=== PATIENT | female | born 1990 | race Caucasian/White ===

== ENCOUNTER 2016-10-01 10:48 | Emergency (ER) | payer OTHER ==
--- NOTE | 2016-10-01 14:32 | ED ORDER SUMMARY ---
..... Patient: SUHA MOORE OrderSheet [facility] VisitID: [id number] [address] [place] [address] 26y, F Registration Date/Time: 10/01/2016 ORDER SHEET Weight: 63.5 kg (stated) Allergies: Penicillin GENERAL ORDERS: UA-Culture if indicated Urgent (12:41 10/01/2016 Lynn KIM) (Ack 12:48 NHouse ER Tech1) (13:02 SBalde R.N.) Urine Urgent (12:41 10/01/2016 Lynn KIM) (Ack 12:48 NHouse ER Tech1) (13:02 Yasir R.N.) Urine Drug Screen Urgent (12:41 10/01/2016 Lynn KIM) (Ack 12:48 NHouse ER Tech1) (13:02 Yasir R.N.) CBC w Diff Urgent (12:41 10/01/2016 Lynn KIM) (Ack 12:48 NHouse ER Tech1) (13:00 NHouse ER Tech1) CMP Urgent (12:41 10/01/2016 Lynn KIM) (Ack 12:48 NHouse ER Tech1) (13:00 NHouse ER Tech1) MEDICATION ORDERS: Ativan PO 1 mg (NOW) (12:40 10/01/2016 Lynn KIM) (13:01 Stiven R.N.) Zofran ODT PO 4 mg (NOW) (12:40 10/01/2016 Lynn KIM) (13:01 HOSdallas R.N.) Clonidine Topical 0.2 mg (NOW) (12:40 10/01/2016 Lynn KIM) (13:02 Stiven R.N.) IV FLUIDS: ORDER SHEET NOTES: [Electronically signed by Jordan Kuo R.N. (14:36 10/01/2016)] [Electronically signed by Zaki Villalba MD (21:05 10/02/2016)] [Electronically locked/signed by Jordan Kuo R.N. (14:36 10/01/2016)]
--- NOTE | 2016-10-01 14:32 | ED ORDER SUMMARY ---
..... Patient: SUHA MOORE OrderSheet [facility] VisitID: [id number] [address] [place] [address] 26y, F Registration Date/Time: 10/01/2016 ORDER SHEET Weight: 63.5 kg (stated) Allergies: Penicillin GENERAL ORDERS: UA-Culture if indicated Urgent (12:41 10/01/2016 Lynn KIM) (Ack 12:48 NHouse ER Tech1) (13:02 SBalde R.N.) Urine Urgent (12:41 10/01/2016 Lynn KIM) (Ack 12:48 NHouse ER Tech1) (13:02 Yasir R.N.) Urine Drug Screen Urgent (12:41 10/01/2016 Lynn KIM) (Ack 12:48 NHouse ER Tech1) (13:02 Yasir R.N.) CBC w Diff Urgent (12:41 10/01/2016 Lynn KIM) (Ack 12:48 NHouse ER Tech1) (13:00 NHouse ER Tech1) CMP Urgent (12:41 10/01/2016 Lynn KIM) (Ack 12:48 NHouse ER Tech1) (13:00 NHouse ER Tech1) MEDICATION ORDERS: Ativan PO 1 mg (NOW) (12:40 10/01/2016 Lynn KIM) (13:01 Stiven R.N.) Zofran ODT PO 4 mg (NOW) (12:40 10/01/2016 Lnyn KIM) (13:01 HOSdallas R.N.) Clonidine Topical 0.2 mg (NOW) (12:40 10/01/2016 Lynn KIM) (13:02 Stiven R.N.) IV FLUIDS: ORDER SHEET NOTES: [Electronically signed by Jordan Kuo R.N. (14:36 10/01/2016)] [Electronically signed by Zaki Villalba MD (21:05 10/02/2016)] [Electronically locked/signed by Jordan Kuo R.N. (14:36 10/01/2016)]
--- NOTE | 2016-10-01 14:32 | ED NURSING NOTES ---
Clinical Report - Nurses [facility] [address] [place] [address] 10/01/2016 10:50 Patient: SUHA MOORE TRIAGE Triage time 1140 AM. Chief Complaint: (heroin withdrawal). Alert. No acute distress. CARYL COMA SCORE: [place] Coma Scale: 15- eyes open spontaneously (4); best verbal response- oriented x 4 (5); best motor response- obeys commands (6). --11:44 Jordan Kuo R.N. 11:40 10/01/16. BP: 122/77. HR: 79. RR: 16. O2 saturation: 99%. Temp: 98.1 F (oral). Pain level now: 07/02. --11:44 Jordan Kuo R.N. Weight: 63.5 kg stated. Height/Length: 68 inches Per Patient. BMI: 21.3. --11:41 Jordan Kuo R.N. Medications None. --11:43 Jordan Kuo R.N. Allergies Penicillin. --11:43 Jordan Kuo R.N. History Arrived by private vehicle. Historian: patient. Unaccompanied. This started last night. ( Patient presents to the ED with symptoms of heroin withdrawal, states that she last used IV heroin yesterday around 11am. Patient states that she was up all night with diarrhea, vomiting, and body aches. Patients states that she would like to quit heroin.). She has had weakness and difficulty breathing. Reports muscle aches. Treatment HARNESSMAKER: None. SOCIAL HX: Current every day light tobacco smoker (cigarette)- less than 1/2 a pack per day. Alcohol use. (no). History of heavy IV drug use: heroin. Recently used drugs yesterday. No infectious disease exposure. FALL RISK ASSESSMENT: Fall risk assessment completed. No fall risk identified. NUTRITIONAL RISK ASSESSMENT: The nutritional risk assessment revealed no deficiencies. FUNCTIONAL ASSESSMENT: Functional assessment: no impairments noted. LEARNING NEEDS ASSESSMENT: The learning needs assessment revealed no barriers. SKIN INTEGRITY ASSESSMENT: Skin integrity risk assessment completed. No skin integrity risk identified. --11:44 Jordan uKo R.N. PROBLEMS: no known problems. ADDITIONAL SURGERIES: no known surgeries. PHYSICAL ASSESSMENT Ambulatory to room. GENERAL / NEURO / PSYCH: Alert. Oriented X 4. Appears in no acute distress. HEENT: Pupils equal, round and reactive to light. No facial asymmetry noted. Mucous membranes are pink. RESPIRATORY: Respirations not labored. Chest nontender. Breath sounds within normal limits. CVS: Normal sinus rhythm noted. Capillary refill less than 2 seconds. Pulses within normal limits. GI / : Abdomen soft and nontender and normal bowel sounds. SKIN: Skin intact. Skin is warm and dry. Normal skin turgor. --11:45 Jordan Kuo R.N. NURSING PROGRESS NOTES 13:01 10/01/2016 Ativan (LORazepam) PO 1 mg given. Allergies verified, confirmed 5 rights and sedative warning given to the patient. --13:01 Jordan Kuo R.N. 13:01 10/01/2016 Zofran ODT (Ondansetron) PO Oral Disintegrating Tablets 4 mg given. Allergies verified and confirmed 5 rights. --13:01 Jordan Kuo R.N. 13:02 10/01/2016 Clonidine Topical Patch/Pad 0.2 mg. Applied to the right upper arm. Allergies verified and confirmed 5 rights. --13:02 Jordan Kuo R.N. The patient is calm and resting quietly. --13:19 Lynn Singer R.N. DISPOSITION / DISCHARGE The patient left prior to discharge education being provided. --14:35 Jordan Kuo R.N. Departure time: 1435 PM. --14:35 Jordan Kuo R.N. Locked/Released at 10/01/2016 14:36 by Jordan Kuo R.N.
--- NOTE | 2016-10-01 14:32 | ED CLINICAL REPORT ---
Clinical Report - Physicians/Mid Levels [facility] [address] [place] [address] 10/01/2016 10:50 Patient: SUHA MOORE Time Seen: 12:36 Oct 01 2016. Arrived- By private vehicle. Historian- patient. CPT: ER phys charges level 4 (#[id number]). HISTORY OF PRESENT ILLNESS Chief Complaint: heroin withdrawal. ( This started last night. ( Patient presents to the ED with symptoms of heroin withdrawal, states that she last used IV heroin yesterday around 11am. Patient states that she was up all night with diarrhea, vomiting, and body aches. Patients states that she would like to quit heroin.). She has had weakness and difficulty breathing. Reports muscle aches.). This started today and is still present. At its maximum, severity described as moderate. When seen in the E.D., severity described as moderate. Modifying factors. Not worsened by anything. Not relieved by anything. The patient has had loss of appetite, fatigue, a sleep problem, muscle aches and weakness. Similar symptoms previously: Milder. Diagnosis: (withdrawal). Recent medical care: Not recently seen/assessed. REVIEW OF SYSTEMS No fever, sore throat, sinus drainage, cough or difficulty breathing. No chest pain, abdominal pain, black stools, bloody stools or chills. No difficulty with urination, skin rash or calf pain. The patient has had nausea, vomiting, diarrhea, back pain and a headache. All systems otherwise negative, except as recorded above. PAST HISTORY See nurses notes. Problems: no known problems. Additional Surgeries: no known surgeries. Medications: None. Allergies: Penicillin. SOCIAL HISTORY Heavy tobacco smoker (cigarette)- less than 1 pack per day. History of drug use: heroin. No alcohol use. ADDITIONAL NOTES The nursing notes have been reviewed. PHYSICAL EXAM Vital Signs: 10/01/2016 11:40 BP: 122/77. HR: 79. RR: 16. O2 saturation: 99%. Temp: 98.1 F. Pain level now: 1010. Appearance: Alert. Anxious. Patient in mild distress. Eyes: Eyes normal inspection. ENT: Pharynx normal. Neck: Normal inspection. CVS: Normal heart rate and rhythm. Heart sounds normal. Pulses normal. Respiratory: No respiratory distress. Breath sounds normal. Chest nontender. Abdomen: Soft and nontender. Back: Normal inspection. Skin: Skin warm. Normal skin color. No rash. Extremities: Extremities exhibit normal ROM. No lower extremity edema. Neuro: Oriented X 3. No motor deficit. No sensory deficit. Reflexes normal. (mild tremor). LABS, X-RAYS, AND EKG Laboratory Tests: UA-Culture if indicated: (ASHLYN: 10/01/2016 12:51) ( [facility]01[facility] 13:09) Final results Test Result Flag Units (Reference) URINE COLOR YELLOW URINE APPEARANCE CLEAR URINE GLUCOSE NEGATIVE (NEGATIVE) URINE BILIRUBIN NEGATIVE (NEGATIVE) URINE KETONE NEGATIVE (NEGATIVE) URINE SPECIFIC GRAVITY 1.010 (1.010-1.030) URINE PH 7.0 (5.0-8.0) URINE PROTEIN NEGATIVE (NEGATIVE) URINE UROBILINOGEN 0.2 EU/dL (0.2-1.0) URINE NITRITE NEGATIVE (NEGATIVE) URINE BLOOD NEGATIVE (NEGATIVE) URINE LEUK ESTERASE NEGATIVE (NEGATIVE) URINE RBC 1-3 rbc/hpf (0-1) URINE WBC NONE SEEN wbc/hpf (0-1) URINE EPITHELIAL CELLS 5-10 EPI/hpf (0-5) URINE BACTERIA NONE SEEN (NONE SEEN) URINE COMMENT CULT NOT INDICATED 1+ MUCOUSURINE CULTURES ARE SET-UP BASED ON THE FOLLOWING CRITERIA:POSITIVE NITRITEPOSITIVE LEUKOCYTE ESTERASEGREATER THAN 10 WHITE BLOOD CELLSMODERATE (2+) OR GREATER BACTERIA Urine: (ASHLYN: 10/01/2016 12:51) ( [facility] 10/01/2016 13:02) Final results Test Result Flag Units (Reference) URINE NEGATIVE CBC w Diff: (ASHLYN: 10/01/2016 12:57) ( [facility] 10/01/2016 13:06) Final results Test Result Flag Units (Reference) WHITE BLOOD COUNT 6.8 K/uL (4.5-11.5) RED BLOOD COUNT 4.45 M/uL (4.00-5.20) HEMOGLOBIN 14.4 gm/dL (12.0-16.0) HEMATOCRIT 44.0 % (36.0-46.0) MEAN CELL VOLUME 99 fL (80-100) MEAN CORPUSCULAR HGB 32 pg (26-34) MEAN CORPUSCULAR HGB CONC 33 g/dL (31-37) RED CELL DISTRIBUTION WIDTH 12.9 % (11.6-14.8) PLATELET COUNT 237 K/uL (150-400) NEUTROPHIL % 65.0 % (50-75) LYMPH % 25.1 % (25-40) MONO % 9.5 % (3-14) EOSINOPHIL % 0.1 % (0-4) BASOPHIL % 0.3 % (0-2) Urine Drug Screen: (ASHLYN: 10/01/2016 12:51) ( MsgRcvd 10/01/2016 13:12) Final results Test Result Flag Units (Reference) AMPHETAMINE/METHAMPHETAMINE NEGATIVE (NEGATIVE) BARBITURATE NEGATIVE (NEGATIVE) BENZODIAZEPINE NEGATIVE (NEGATIVE) CANNABINOID POSITIVE H (NEGATIVE) COCAINE NEGATIVE (NEGATIVE) ECSTASY NEGATIVE (NEGATIVE) METHADONE NEGATIVE (NEGATIVE) OPIATE NEGATIVE (NEGATIVE) The urine drug screen is a qualitative screening test fordrug overdose and abuse. All screen results should beconsidered as presumptive.Drugs screened for are as follows:BenzodiazepinesCocaineAmphetamines/MetamphetaminesTHC (Tetrahydrocannabinol)OpiatesBarbituratesEcstasyMethadonePositive results are unconfirmed. For confirmation, notifythe lab for the specimen to be sent to the reference lab.All confirmations must be performed by a differentmethodology.The ingestion of natural herbal and plant productscontaining Ephedra/Ephedra metabolites can produce in urineone or more substances capable of cross reacting withamphetamine/methamphetamine immunoassays. These testsprovide a preliminary result only. A more specificalternative chemical method must be used to obtain aconfirmed analytical result. CMP: (ASHLYN: 10/01/2016 12:57) ( MsgRcvd 10/01/2016 13:25) Final results Test Result Flag Units (Reference) GLUCOSE 96 mg/dL (70-110) BUN 6 L mg/dL (7-18) CREATININE 0.7 mg/dL (0.6-1.3) Estimated GFR >60 mL/min Estimated GFR- >60 mL/min Note: Persistent reduction over 3 months in eGFR<60 mL/min/1.73 m2 defines CKD. Patients with eGFR values>=60 mL/min/1.73 m2 may also have CKD if evidence ofpersistent proteinuria. Additional information may be foundat www.kidney.org. SODIUM 141 mmol/L (136-145) POTASSIUM 3.6 mmol/L (3.5-5.1) CHLORIDE 106 mmol/L (98-107) CARBON DIOXIDE 29 mmol/L (21-32) CALCIUM 9.8 mg/dL (8.5-10.1) TOTAL PROTEIN 7.8 g/dL (6.4-8.2) ALBUMIN 4.0 g/dL (3.3-5.0) BILIRUBIN, TOTAL 0.3 mg/dL (0.0-1.0) ALKALINE PHOSPHATASE 67 U/L (46-116) AST (SGOT) 15 U/L (15-37) ALT (SGPT) 26 U/L (12-78) . PROGRESS AND PROCEDURES Course of Care: Zofran 4 mg ODT Ativan 1 mg po Clonidine patch 0.2 Symptoms better. Pt eloped from the ER. Patient/family counseled. Disposition: ( Pt Eloped). CLINICAL IMPRESSION Heroin withdrawal Eloped from the ER. (Electronically signed by Zaki Villalba MD 10/02/2016 21:05)
--- NOTE | 2016-10-01 14:32 | ED NURSING NOTES ---
Clinical Report - Nurses [facility] [address] [place] [address] 10/01/2016 10:50 Patient: SUHA MOORE TRIAGE Triage time 1140 AM. Chief Complaint: (heroin withdrawal). Alert. No acute distress. CARYL COMA SCORE: [place] Coma Scale: 15- eyes open spontaneously (4); best verbal response- oriented x 4 (5); best motor response- obeys commands (6). --11:44 Jordan Kuo R.N. 11:40 10/01/16. BP: 122/77. HR: 79. RR: 16. O2 saturation: 99%. Temp: 98.1 F (oral). Pain level now: 07/02. --11:44 Jordan Kuo R.N. Weight: 63.5 kg stated. Height/Length: 68 inches Per Patient. BMI: 21.3. --11:41 Jordan Kuo R.N. Medications None. --11:43 Jordan Kuo R.N. Allergies Penicillin. --11:43 Jordan Kuo R.N. History Arrived by private vehicle. Historian: patient. Unaccompanied. This started last night. ( Patient presents to the ED with symptoms of heroin withdrawal, states that she last used IV heroin yesterday around 11am. Patient states that she was up all night with diarrhea, vomiting, and body aches. Patients states that she would like to quit heroin.). She has had weakness and difficulty breathing. Reports muscle aches. Treatment INSURANCE APPLICATION INVESTIGATOR: None. SOCIAL HX: Current every day light tobacco smoker (cigarette)- less than 1/2 a pack per day. Alcohol use. (no). History of heavy IV drug use: heroin. Recently used drugs yesterday. No infectious disease exposure. FALL RISK ASSESSMENT: Fall risk assessment completed. No fall risk identified. NUTRITIONAL RISK ASSESSMENT: The nutritional risk assessment revealed no deficiencies. FUNCTIONAL ASSESSMENT: Functional assessment: no impairments noted. LEARNING NEEDS ASSESSMENT: The learning needs assessment revealed no barriers. SKIN INTEGRITY ASSESSMENT: Skin integrity risk assessment completed. No skin integrity risk identified. --11:44 Jordan Kuo R.N. PROBLEMS: no known problems. ADDITIONAL SURGERIES: no known surgeries. PHYSICAL ASSESSMENT Ambulatory to room. GENERAL / NEURO / PSYCH: Alert. Oriented X 4. Appears in no acute distress. HEENT: Pupils equal, round and reactive to light. No facial asymmetry noted. Mucous membranes are pink. RESPIRATORY: Respirations not labored. Chest nontender. Breath sounds within normal limits. CVS: Normal sinus rhythm noted. Capillary refill less than 2 seconds. Pulses within normal limits. GI / : Abdomen soft and nontender and normal bowel sounds. SKIN: Skin intact. Skin is warm and dry. Normal skin turgor. --11:45 Jordan Kuo R.N. NURSING PROGRESS NOTES 13:01 10/01/2016 Ativan (LORazepam) PO 1 mg given. Allergies verified, confirmed 5 rights and sedative warning given to the patient. --13:01 Jordan Kuo R.N. 13:01 10/01/2016 Zofran ODT (Ondansetron) PO Oral Disintegrating Tablets 4 mg given. Allergies verified and confirmed 5 rights. --13:01 Jordan Kuo R.N. 13:02 10/01/2016 Clonidine Topical Patch/Pad 0.2 mg. Applied to the right upper arm. Allergies verified and confirmed 5 rights. --13:02 Jordan Kuo R.N. The patient is calm and resting quietly. --13:19 Lynn Singer R.N. DISPOSITION / DISCHARGE The patient left prior to discharge education being provided. --14:35 Jordan Kuo R.N. Departure time: 1435 PM. --14:35 Jordan Kuo R.N. Locked/Released at 10/01/2016 14:36 by Jordan Kuo R.N.
--- NOTE | 2016-10-02 21:05 | ED MED RECONCILIATION SUMMARY ---
Patient: SUHA MOORE Medication Reconciliation Report [facility] VisitID: [id number] [address] [place] [address] 26y, F Registration Date/Time: 10/01/2016 Weight: 63.5 kg Height/Length: 68 in. BMI: 21.3 ALLERGIES: Penicillin The patient's Home Medications are listed below: NONE. The source(s) of the original Home Medication information: Not obtained. The following Medications were given to the patient in the Emergency Department: Ativan [PO] PO 1 mg, administered: 10/01/2016 1:01:00 PM Zofran ODT [PO] PO 4 mg, administered: 10/01/2016 1:01:00 PM Clonidine [Topical] Topical 0.2 mg, administered: 10/01/2016 1:02:00 PM The following Medications were prescribed to the patient: None.
--- NOTE | 2016-10-02 21:05 | ED DISCHARGE INSTRUCTIONS ---
Patient: SUHA MOORE General Instructions [facility] VisitID: [id number] [address] [place] [address] 26y, F Registration Date/Time: 10/01/2016 Heroin withdrawal Eloped from the ER. (Electronically signed by Zaki Villalba MD 10/02/2016 21:05)
--- NOTE | 2016-10-02 21:05 | ED MAR SUMMARY ---
..... Medication Administration Record [facility] [address] [place] [place] [address] Patient: SUHA MOORE Visit ID: [id number] 26y, F Weight: 63.5 kg Height/Length: 68 in BMI: 21.3 ALLERGIES: Penicillin Given 13:10/01/2016 Jordan Kuo RPierreNPierre Medication Administered: ATIVAN [PO] (LORAZEPAM), Dose: 1 mg PO. Medication Ordered: Ativan PO 1 mg (NOW). Given 13:10/01/2016 Jordan Kou, RPierreNPierre Medication Administered: ZOFRAN ODT [PO] (ONDANSETRON), Dose: 4 mg Oral Disintegrating Tablets PO. Medication Ordered: Zofran ODT PO 4 mg (NOW). Given 13:10/01/2016 Jordan Kuo, RPierreNPierre Medication Administered: CLONIDINE [TOPICAL], Dose: 0.2 mg Patch/Pad Topical. Medication Ordered: Clonidine Topical 0.2 mg (NOW).
--- NOTE | 2016-10-02 21:05 | ED DISCHARGE INSTRUCTIONS ---
Patient: SUHA MOORE General Instructions [facility] VisitID: [id number] [address] [place] [address] 26y, F Registration Date/Time: 10/01/2016 Heroin withdrawal Eloped from the ER. (Electronically signed by Zaki Villalba MD 10/02/2016 21:05)
--- NOTE | 2016-10-02 21:05 | ED MAR SUMMARY ---
..... Medication Administration Record [facility] [address] [place] [address] Patient: SUHA MOORE Visit ID: [id number] 26y, F Weight: 63.5 kg Height/Length: 68 in BMI: 21.3 ALLERGIES: Penicillin Given 13:10/01/2016 Jordan Kuo RPierreNPierre Medication Administered: ATIVAN [PO] (LORAZEPAM), Dose: 1 mg PO. Medication Ordered: Ativan PO 1 mg (NOW). Given 13:10/01/2016 Jordan Kuo, RPierreNPierre Medication Administered: ZOFRAN ODT [PO] (ONDANSETRON), Dose: 4 mg Oral Disintegrating Tablets PO. Medication Ordered: Zofran ODT PO 4 mg (NOW). Given 13:10/01/2016 Jordan Kuo, RPierreNPierre Medication Administered: CLONIDINE [TOPICAL], Dose: 0.2 mg Patch/Pad Topical. Medication Ordered: Clonidine Topical 0.2 mg (NOW).
--- NOTE | 2016-10-02 21:05 | ED MED RECONCILIATION SUMMARY ---
Patient: SUHA MOORE Medication Reconciliation Report [facility] VisitID: [id number] [address] [place] [address] 26y, F Registration Date/Time: 10/01/2016 Weight: 63.5 kg Height/Length: 68 in. BMI: 21.3 ALLERGIES: Penicillin The patient's Home Medications are listed below: NONE. The source(s) of the original Home Medication information: Not obtained. The following Medications were given to the patient in the Emergency Department: Ativan [PO] PO 1 mg, administered: 10/01/2016 1:01:00 PM Zofran ODT [PO] PO 4 mg, administered: 10/01/2016 1:01:00 PM Clonidine [Topical] Topical 0.2 mg, administered: 10/01/2016 1:02:00 PM The following Medications were prescribed to the patient: None.
== END 2016-10-01 14:36 | disposition left against medical advice (07) ==
LOC: ED SRH 10:48
DX: F11.23 Opioid dependence with withdrawal (principal); F17.210 Nicotine dependence, cigarettes, uncomplicated; Z88.0 Allergy status to penicillin
CPT/HCPCS: 90004; 90074; 90100; 92760; 92761; 92762; 92763; 92764; 92765; 92766; 92767; 93070; 95059

== ENCOUNTER 2016-11-13 18:22 | Emergency (ER) | payer OTHER ==
--- NOTE | 2016-11-13 20:04 | ED NURSING NOTES ---
Clinical Report - Nurses [facility] [address] [place] [address] 11/13/2016 18:22 Patient: SUHA MOORE TRIAGE Triage time 1802. Acuity: LEVEL 4. Chief Complaint: (ETOH- clear to book). Alert. No acute distress. (combative intoxicated). --18:36 Belia Huerta 18:33 11/13/16. BP: 154/108. HR: 146. RR: 20. O2 saturation: 96%. --18:36 Belia Huerta. Weight: 65.7 kg. Height/Length: 68 inches. BMI: 22. --18:33 Belia Huerta. Medications Unable to Obtain. --18:34 Belia Huerta. Allergies No Known Drug Allergy. --18:35 Belia Huerta. History Historian: police. Arrived in police custody. This started today. Treatment DIALYSIS CLINICAL MANAGER: None. --18:36 Belia Huerta. Interventions ID band on patient. To treatment room. --18:36 Belia Huerta. PHYSICAL ASSESSMENT Carried to room. GENERAL / NEURO / PSYCH: Alert. Appears in distress. Decreased awareness (combative). Mood/affect abnormal (restless, agitated, angry and hostile). HEENT: No facial asymmetry noted. Mucous membranes are pink. RESPIRATORY: Respirations not labored. Chest nontender. Breath sounds within normal limits. CVS: Cardiac rhythm: sinus tachycardia. Capillary refill less than 2 seconds. Pulses within normal limits. GI / : Abdomen soft and nontender and normal bowel sounds. SKIN: Skin intact. Skin is warm and dry. Normal skin turgor. --18:38 Belia Huerta. NURSING PROGRESS NOTES Monitoring of patient in place. Patient gowned. Bed placed in lowest position. Brakes of bed on. Patient ready for evaluation- chart flagged. --18:39 Belia Huerta ( Pt is intoxicated, here in cuffs with 4 police officers, carried in, clear to book, assaulted police). --18:40 Belia Huerta ( Hand cuffs removed, pt placed in hospital 4 point restraints, spit miller on for spitting at police and staff). --18:40 Belia Huerta 19:16 11/13/16. BP: 113/65. RR: 18. O2 saturation: 96%. --19:16 Belia Huerta ( Pt is sleeping, good cap refill x 4). --19:16 Belia Huerta 19:40 11/13/2016 HALDOL (Haloperidol Lactate) IM 5 mg given. Given in the left anterior lateral thigh. Allergies verified and confirmed 5 rights. --20:12 Belia Huerta ( see restraint flow sheet). --20:12 Belia Huerta. DISPOSITION / DISCHARGE Departure time: 2009. Condition at departure: unchanged and stable. ( clear to book). The patient was discharged by the physician. She was discharged to police department facility and accompanied by a police escort. She left the Emergency Department via police department vehicle and carried. Driving (police). --20:14 Belia Huerta 20:12 11/13/16. BP: 151/100. HR: 136. RR: 20. O2 saturation: 97%. --20:14 Belia Huerta. Locked/Released at 11/13/2016 20:14 by Belia Huerta,
--- NOTE | 2016-11-13 20:04 | ED CLINICAL REPORT ---
Clinical Report - Physicians/Mid Levels [facility] [address] [place] [address] 11/13/2016 18:22 Patient: SUHA MOORE Time Seen: 18:33; initial patient contact. Arrived- Presently in custody of police. Came in police custody. Historian- patient. History limited by intoxication. Physical Exam limited by intoxication. HISTORY OF PRESENT ILLNESS Chief Complaint: INTOXICATED. Symptoms started today. Substances abused: Alcohol. Last drink consisted of liquor just prior to arrival. She is under influence in ED. The patient has been agitated. The symptoms are described as moderate. No injuries noted. Similar symptoms previously: None. Recent medical care: Not recently seen/assessed. REVIEW OF SYSTEMS No double vision, alteration in mental status, depression, head injury or suicidal thoughts. All systems otherwise negative, except as recorded above. PAST HISTORY See nurses notes. SOCIAL HISTORY Smoker - current status unknown. Alcohol use. ADDITIONAL NOTES The nursing notes have been reviewed with agreement regarding the chief complaint, PMH and patient medications and allergies. PHYSICAL EXAM Vital Signs: 11/13/2016 18:34 BP: 154/108. HR: 146. RR: 20. O2 saturation: 96%. Have been reviewed. Hypertensive. Tachycardic. Respiratory rate normal. Temperature normal. Oxygen saturation normal. Appearance: Anxious. The patient's speech is slurred, the patient is agitated and odor of alcohol is present. ENT: Pharynx normal. CVS: Heart sounds normal. Respiratory: No respiratory distress. Breath sounds normal. Abdomen: Soft and nontender. No organomegaly. Skin: Normal skin color. No rash. Extremities: No lower extremity edema. LABS, X-RAYS, AND EKG Laboratory Tests: UA-Culture if indicated: (ASHLYN: 11/13/2016 18:30) ( MsgRcvd 11/13/2016 19:08) Final results Test Result Flag Units (Reference) URINE COLOR STRAW URINE APPEARANCE CLEAR URINE GLUCOSE NEGATIVE (NEGATIVE) URINE BILIRUBIN NEGATIVE (NEGATIVE) URINE KETONE NEGATIVE (NEGATIVE) URINE SPECIFIC GRAVITY <= 1.005 L (1.010-1.030) URINE PH 6.0 (5.0-8.0) URINE PROTEIN NEGATIVE (NEGATIVE) URINE UROBILINOGEN 0.2 EU/dL (0.2-1.0) URINE NITRITE NEGATIVE (NEGATIVE) URINE BLOOD NEGATIVE (NEGATIVE) URINE LEUK ESTERASE NEGATIVE (NEGATIVE) URINE RBC 0-1 rbc/hpf (0-1) URINE WBC 0-1 wbc/hpf (0-1) URINE EPITHELIAL CELLS 1-3 EPI/hpf (0-5) URINE BACTERIA NONE SEEN (NONE SEEN) URINE COMMENT CULT NOT INDICATED URINE CULTURES ARE SET-UP BASED ON THE FOLLOWING CRITERIA:POSITIVE NITRITEPOSITIVE LEUKOCYTE ESTERASEGREATER THAN 10 WHITE BLOOD CELLSMODERATE (2+) OR GREATER BACTERIA Urine: (ASHLYN: 11/13/2016 18:30) ( [facility] 11/13/2016 19:01) Final results Test Result Flag Units (Reference) URINE NEGATIVE Urine Drug Screen: (ASHLYN: 11/13/2016 18:30) ( [facility] 11/13/2016 19:29) Final results Test Result Flag Units (Reference) AMPHETAMINE/METHAMPHETAMINE NEGATIVE (NEGATIVE) BARBITURATE NEGATIVE (NEGATIVE) BENZODIAZEPINE NEGATIVE (NEGATIVE) CANNABINOID POSITIVE H (NEGATIVE) COCAINE NEGATIVE (NEGATIVE) ECSTASY NEGATIVE (NEGATIVE) METHADONE NEGATIVE (NEGATIVE) OPIATE NEGATIVE (NEGATIVE) The urine drug screen is a qualitative screening test fordrug overdose and abuse. All screen results should beconsidered as presumptive.Drugs screened for are as follows:BenzodiazepinesCocaineAmphetamines/MetamphetaminesTHC (Tetrahydrocannabinol)OpiatesBarbituratesEcstasyMethadonePositive results are unconfirmed. For confirmation, notifythe lab for the specimen to be sent to the reference lab.All confirmations must be performed by a differentmethodology.The ingestion of natural herbal and plant productscontaining Ephedra/Ephedra metabolites can produce in urineone or more substances capable of cross reacting withamphetamine/methamphetamine immunoassays. These testsprovide a preliminary result only. A more specificalternative chemical method must be used to obtain aconfirmed analytical result. Ethyl Alcohol: (ASHLYN: 11/13/2016 18:30) ( MsgRcvd 11/13/2016 19:07) Final results Test Result Flag Units (Reference) ETHYL ALCOHOL 323 H mg/dL (3-10) . PROGRESS AND PROCEDURES Disposition: [facility] to [facility] in good condition. Condition: stable. CLINICAL IMPRESSION Alcohol intoxication. No alcohol intoxication with delirium. Complicated alcohol intoxication. INSTRUCTIONS No alcohol. Seek medical help to quit drinking. (CLEAR TO BOOK!!!). Follow-up: Follow up with your doctor in about two days if not better. Call for an appointment. Screening today revealed the patient's blood pressure to be in the normal range. (Electronically signed by Yang Santos Dr. 11/13/2016 20:21)
--- NOTE | 2016-11-13 20:04 | ED ORDER SUMMARY ---
..... Patient: SUHA MOORE OrderSheet [facility] VisitID: [id number] [address] [place] [address] 26y, F Registration Date/Time: 11/13/2016 ORDER SHEET Weight: 65.7 kg Allergies: No Known Drug Allergy GENERAL ORDERS: UA-Culture if indicated Urgent (18:43 11/13/2016 Kristen verbal order read back to Dm Monet) (18:43 EBonrobert) Urine Urgent (18:43 11/13/2016 EBashlee verbal order read back to Dm Monet) (18:43 EBonrobert) Ethyl Alcohol Urgent (18:43 11/13/2016 EBashlee verbal order read back to Dm Monet) (18:43 EBonrobert) Urine Drug Screen Urgent (18:43 11/13/2016 EBashlee verbal order read back to Dm Monet) (18:43 EBonham) MEDICATION ORDERS: Haldol IM 5 mg (HIGH ALERT MEDICATION, NOW) (19:43 11/13/2016 Dm Monet) (20:12 EBonrobert) IV FLUIDS: ORDER SHEET NOTES: [Electronically signed by Belia Huerta (20:14 11/13/2016)] [Electronically signed by Yang Santos Dr. (20:21 11/13/2016)] [Electronically locked/signed by Belia Huerta (20:14 11/13/2016)]
--- NOTE | 2016-11-13 20:04 | ED ORDER SUMMARY ---
..... Patient: SUHA MOORE OrderSheet [facility] VisitID: [id number] [address] [place] [address] 26y, F Registration Date/Time: 11/13/2016 ORDER SHEET Weight: 65.7 kg Allergies: No Known Drug Allergy GENERAL ORDERS: UA-Culture if indicated Urgent (18:43 11/13/2016 Kristen verbal order read back to Dm Monet) (18:43 EBonrobert) Urine Urgent (18:43 11/13/2016 EBashlee verbal order read back to Dm Monet) (18:43 EBonrobert) Ethyl Alcohol Urgent (18:43 11/13/2016 EBashlee verbal order read back to Dm Monet) (18:43 EBonrobert) Urine Drug Screen Urgent (18:43 11/13/2016 EBashlee verbal order read back to Dm Monet) (18:43 EBonham) MEDICATION ORDERS: Haldol IM 5 mg (HIGH ALERT MEDICATION, NOW) (19:43 11/13/2016 Dm Monet) (20:12 EBonrobert) IV FLUIDS: ORDER SHEET NOTES: [Electronically signed by Belia Huerta (20:14 11/13/2016)] [Electronically signed by Yang Santos Dr. (20:21 11/13/2016)] [Electronically locked/signed by Belia Huerta (20:14 11/13/2016)]
--- NOTE | 2016-11-13 20:04 | ED NURSING NOTES ---
Clinical Report - Nurses [facility] [address] [place] [address] 11/13/2016 18:22 Patient: SUHA MOORE TRIAGE Triage time 1802. Acuity: LEVEL 4. Chief Complaint: (ETOH- clear to book). Alert. No acute distress. (combative intoxicated). --18:36 Belia Huerta 18:33 11/13/16. BP: 154/108. HR: 146. RR: 20. O2 saturation: 96%. --18:36 Belia Huerta. Weight: 65.7 kg. Height/Length: 68 inches. BMI: 22. --18:33 Belia Huerta. Medications Unable to Obtain. --18:34 Belia Huerta. Allergies No Known Drug Allergy. --18:35 Belia Huerta. History Historian: police. Arrived in police custody. This started today. Treatment CUSTOMER SECURITY CLERK: None. --18:36 Belia Huerta. Interventions ID band on patient. To treatment room. --18:36 Belia Huerta. PHYSICAL ASSESSMENT Carried to room. GENERAL / NEURO / PSYCH: Alert. Appears in distress. Decreased awareness (combative). Mood/affect abnormal (restless, agitated, angry and hostile). HEENT: No facial asymmetry noted. Mucous membranes are pink. RESPIRATORY: Respirations not labored. Chest nontender. Breath sounds within normal limits. CVS: Cardiac rhythm: sinus tachycardia. Capillary refill less than 2 seconds. Pulses within normal limits. GI / : Abdomen soft and nontender and normal bowel sounds. SKIN: Skin intact. Skin is warm and dry. Normal skin turgor. --18:38 Belia Huerta. NURSING PROGRESS NOTES Monitoring of patient in place. Patient gowned. Bed placed in lowest position. Brakes of bed on. Patient ready for evaluation- chart flagged. --18:39 Belia Huerta ( Pt is intoxicated, here in cuffs with 4 police officers, carried in, clear to book, assaulted police). --18:40 Belia Huerta ( Hand cuffs removed, pt placed in hospital 4 point restraints, spit miller on for spitting at police and staff). --18:40 Belia Huerta 19:16 11/13/16. BP: 113/65. RR: 18. O2 saturation: 96%. --19:16 Belia Huerta ( Pt is sleeping, good cap refill x 4). --19:16 Belia Huerta 19:40 11/13/2016 HALDOL (Haloperidol Lactate) IM 5 mg given. Given in the left anterior lateral thigh. Allergies verified and confirmed 5 rights. --20:12 Belia Huerta ( see restraint flow sheet). --20:12 Belia Huerta. DISPOSITION / DISCHARGE Departure time: 2009. Condition at departure: unchanged and stable. ( clear to book). The patient was discharged by the physician. She was discharged to police department facility and accompanied by a police escort. She left the Emergency Department via police department vehicle and carried. Driving (police). --20:14 Belia Huerta 20:12 11/13/16. BP: 151/100. HR: 136. RR: 20. O2 saturation: 97%. --20:14 Belia Huerta. Locked/Released at 11/13/2016 20:14 by Belia Huerta,
--- NOTE | 2016-11-13 20:04 | ED CLINICAL REPORT ---
Clinical Report - Physicians/Mid Levels [facility] [address] [place] [address] 11/13/2016 18:22 Patient: SUHA MOORE Time Seen: 18:33; initial patient contact. Arrived- Presently in custody of police. Came in police custody. Historian- patient. History limited by intoxication. Physical Exam limited by intoxication. HISTORY OF PRESENT ILLNESS Chief Complaint: INTOXICATED. Symptoms started today. Substances abused: Alcohol. Last drink consisted of liquor just prior to arrival. She is under influence in ED. The patient has been agitated. The symptoms are described as moderate. No injuries noted. Similar symptoms previously: None. Recent medical care: Not recently seen/assessed. REVIEW OF SYSTEMS No double vision, alteration in mental status, depression, head injury or suicidal thoughts. All systems otherwise negative, except as recorded above. PAST HISTORY See nurses notes. SOCIAL HISTORY Smoker - current status unknown. Alcohol use. ADDITIONAL NOTES The nursing notes have been reviewed with agreement regarding the chief complaint, PMH and patient medications and allergies. PHYSICAL EXAM Vital Signs: 11/13/2016 18:34 BP: 154/108. HR: 146. RR: 20. O2 saturation: 96%. Have been reviewed. Hypertensive. Tachycardic. Respiratory rate normal. Temperature normal. Oxygen saturation normal. Appearance: Anxious. The patient's speech is slurred, the patient is agitated and odor of alcohol is present. ENT: Pharynx normal. CVS: Heart sounds normal. Respiratory: No respiratory distress. Breath sounds normal. Abdomen: Soft and nontender. No organomegaly. Skin: Normal skin color. No rash. Extremities: No lower extremity edema. LABS, X-RAYS, AND EKG Laboratory Tests: UA-Culture if indicated: (ASHLYN: 11/13/2016 18:30) ( MsgRcvd 11/13/2016 19:08) Final results Test Result Flag Units (Reference) URINE COLOR STRAW URINE APPEARANCE CLEAR URINE GLUCOSE NEGATIVE (NEGATIVE) URINE BILIRUBIN NEGATIVE (NEGATIVE) URINE KETONE NEGATIVE (NEGATIVE) URINE SPECIFIC GRAVITY <= 1.005 L (1.010-1.030) URINE PH 6.0 (5.0-8.0) URINE PROTEIN NEGATIVE (NEGATIVE) URINE UROBILINOGEN 0.2 EU/dL (0.2-1.0) URINE NITRITE NEGATIVE (NEGATIVE) URINE BLOOD NEGATIVE (NEGATIVE) URINE LEUK ESTERASE NEGATIVE (NEGATIVE) URINE RBC 0-1 rbc/hpf (0-1) URINE WBC 0-1 wbc/hpf (0-1) URINE EPITHELIAL CELLS 1-3 EPI/hpf (0-5) URINE BACTERIA NONE SEEN (NONE SEEN) URINE COMMENT CULT NOT INDICATED URINE CULTURES ARE SET-UP BASED ON THE FOLLOWING CRITERIA:POSITIVE NITRITEPOSITIVE LEUKOCYTE ESTERASEGREATER THAN 10 WHITE BLOOD CELLSMODERATE (2+) OR GREATER BACTERIA Urine: (ASHLYN: 11/13/2016 18:30) ( [facility] 11/13/2016 19:01) Final results Test Result Flag Units (Reference) URINE NEGATIVE Urine Drug Screen: (ASHLYN: 11/13/2016 18:30) ( [facility] 11/13/2016 19:29) Final results Test Result Flag Units (Reference) AMPHETAMINE/METHAMPHETAMINE NEGATIVE (NEGATIVE) BARBITURATE NEGATIVE (NEGATIVE) BENZODIAZEPINE NEGATIVE (NEGATIVE) CANNABINOID POSITIVE H (NEGATIVE) COCAINE NEGATIVE (NEGATIVE) ECSTASY NEGATIVE (NEGATIVE) METHADONE NEGATIVE (NEGATIVE) OPIATE NEGATIVE (NEGATIVE) The urine drug screen is a qualitative screening test fordrug overdose and abuse. All screen results should beconsidered as presumptive.Drugs screened for are as follows:BenzodiazepinesCocaineAmphetamines/MetamphetaminesTHC (Tetrahydrocannabinol)OpiatesBarbituratesEcstasyMethadonePositive results are unconfirmed. For confirmation, notifythe lab for the specimen to be sent to the reference lab.All confirmations must be performed by a differentmethodology.The ingestion of natural herbal and plant productscontaining Ephedra/Ephedra metabolites can produce in urineone or more substances capable of cross reacting withamphetamine/methamphetamine immunoassays. These testsprovide a preliminary result only. A more specificalternative chemical method must be used to obtain aconfirmed analytical result. Ethyl Alcohol: (ASHLYN: 11/13/2016 18:30) ( MsgRcvd 11/13/2016 19:07) Final results Test Result Flag Units (Reference) ETHYL ALCOHOL 323 H mg/dL (3-10) . PROGRESS AND PROCEDURES Disposition: Discharged to intermediate in good condition. Condition: stable. CLINICAL IMPRESSION Alcohol intoxication. No alcohol intoxication with delirium. Complicated alcohol intoxication. INSTRUCTIONS No alcohol. Seek medical help to quit drinking. (CLEAR TO BOOK!!!). Follow-up: Follow up with your doctor in about two days if not better. Call for an appointment. Screening today revealed the patient's blood pressure to be in the normal range. (Electronically signed by Yang Santos Dr. 11/13/2016 20:21)
--- NOTE | 2016-11-13 20:21 | ED MED RECONCILIATION SUMMARY ---
Patient: SUHA MOORE Medication Reconciliation Report [facility] VisitID: [id number] [address] [place] [address] 26y, F Registration Date/Time: 11/13/2016 Weight: 65.7 kg Height/Length: 68 in. BMI: 22.0 ALLERGIES: No Known Drug Allergy The patient's Home Medications are listed below: Unable to obtain. The source(s) of the original Home Medication information: Not obtained. The following Medications were given to the patient in the Emergency Department: HALDOL [IM] IM 5 mg, administered: 11/13/2016 7:40:00 PM The following Medications were prescribed to the patient: None.
--- NOTE | 2016-11-13 20:21 | ED MAR SUMMARY ---
..... Medication Administration Record [facility] [address] [place] [address] Patient: SUHA MOORE Visit ID: [id number] 26y, F Weight: 65.7 kg Height/Length: 68 in BMI: 22 ALLERGIES: No Known Drug Allergy Given 19:40 11/13/2016 Belia Huerta, Medication Administered: HALDOL [IM] (HALOPERIDOL LACTATE), Dose: 5 mg IM. Medication Ordered: Haldol IM 5 mg (HIGH ALERT MEDICATION, NOW).
--- NOTE | 2016-11-13 20:21 | ED DISCHARGE INSTRUCTIONS ---
Patient: SUHA MOORE General Instructions [facility] VisitID: [id number] [place] [address] 26y, F Registration Date/Time: 11/13/2016 Alcohol intoxication. No alcohol intoxication with delirium. Complicated alcohol intoxication. INSTRUCTIONS No alcohol. Seek medical help to quit drinking. (CLEAR TO BOOK!!!). Follow-up: Follow up with your doctor in about two days if not better. Call for an appointment. Screening today revealed the patient's blood pressure to be in the normal range. ADDITIONAL INFORMATION Alcohol Intoxication Alcohol intoxication occurs when you drink alcohol faster than your liver can remove it from your system. Alcohol intoxication affects your judgment and coordination. Very high blood alcohol levels can cause coma, very slow breathing and even . If you drink alcohol every day, this may gradually cause permanent damage to your liver, brain, heart, pancreas and other organs. Alcohol use during may cause permanent damage to the growing baby. Home Care: Do not drink any more alcohol. DO NOT DRIVE until all effects of the alcohol have worn off. Get lots of rest over the next few days. Drink plenty of water and other non-alcoholic liquids. Try to eat regular meals. If you have been drinking heavily on a daily basis, you may go through alcohol withdrawl. This is also called the shakes or DTs. The usual symptoms last 3 to 4 days and may include nervousness, shakiness, nausea, sweating or sleeplessness. During this time, it is best that you stay with family or friends who can help and support you. You can also admit yourself to a residential detox program. If your symptoms are severe, contact your doctor for medicines to help. Follow Up: If alcohol is causing a problem in your life, these and other organizations can help you: Alcoholics Anonymous offers support through a self-help fellowship. There are no dues or fees. See the Yellow Pages and call for time and place of meetings. www.aa.org [employer] offers support to families of alcohol users. 440.748.3110 www.al-anon.org [employer] [place] On Alcoholism And Drug Dependence 281-394-3297 www.ncadd.org There are also inpatient or residential alcohol detox programs. Check the Internet or phonebook Yellow Pages under Drug Abuse & Treatment Centers. Get Prompt Medical Attention if any of the following occur: there) You have been given the following additional information: Alcohol Intoxication (Electronically signed by Yang Santos Dr. 11/13/2016 20:21)
--- NOTE | 2016-11-13 20:21 | ED DISCHARGE INSTRUCTIONS ---
Patient: SUHA MOORE General Instructions [facility] VisitID: [id number] [place] [address] 26y, F Registration Date/Time: 11/13/2016 Alcohol intoxication. No alcohol intoxication with delirium. Complicated alcohol intoxication. INSTRUCTIONS No alcohol. Seek medical help to quit drinking. (CLEAR TO BOOK!!!). Follow-up: Follow up with your doctor in about two days if not better. Call for an appointment. Screening today revealed the patient's blood pressure to be in the normal range. ADDITIONAL INFORMATION Alcohol Intoxication Alcohol intoxication occurs when you drink alcohol faster than your liver can remove it from your system. Alcohol intoxication affects your judgment and coordination. Very high blood alcohol levels can cause coma, very slow breathing and even . If you drink alcohol every day, this may gradually cause permanent damage to your liver, brain, heart, pancreas and other organs. Alcohol use during may cause permanent damage to the growing baby. Home Care: Do not drink any more alcohol. DO NOT DRIVE until all effects of the alcohol have worn off. Get lots of rest over the next few days. Drink plenty of water and other non-alcoholic liquids. Try to eat regular meals. If you have been drinking heavily on a daily basis, you may go through alcohol withdrawl. This is also called the shakes or DTs. The usual symptoms last 3 to 4 days and may include nervousness, shakiness, nausea, sweating or sleeplessness. During this time, it is best that you stay with family or friends who can help and support you. You can also admit yourself to a residential detox program. If your symptoms are severe, contact your doctor for medicines to help. Follow Up: If alcohol is causing a problem in your life, these and other organizations can help you: Alcoholics Anonymous offers support through a self-help fellowship. There are no dues or fees. See the Yellow Pages and call for time and place of meetings. www.aa.org [employer] offers support to families of alcohol users. 202.278.5882 www.al-anon.org [employer] [place] On Alcoholism And Drug Dependence 903-369-8949 www.ncadd.org There are also inpatient or residential alcohol detox programs. Check the Internet or phonebook Yellow Pages under Drug Abuse & Treatment Centers. Get Prompt Medical Attention if any of the following occur: there) You have been given the following additional information: Alcohol Intoxication (Electronically signed by Yang Santos Dr. 11/13/2016 20:21)
--- NOTE | 2016-11-13 20:21 | ED MED RECONCILIATION SUMMARY ---
Patient: SUHA MOORE Medication Reconciliation Report [facility] VisitID: [id number] [address] [place] [address] 26y, F Registration Date/Time: 11/13/2016 Weight: 65.7 kg Height/Length: 68 in. BMI: 22.0 ALLERGIES: No Known Drug Allergy The patient's Home Medications are listed below: Unable to obtain. The source(s) of the original Home Medication information: Not obtained. The following Medications were given to the patient in the Emergency Department: HALDOL [IM] IM 5 mg, administered: 11/13/2016 7:40:00 PM The following Medications were prescribed to the patient: None.
--- NOTE | 2016-11-13 20:21 | ED MAR SUMMARY ---
..... Medication Administration Record [facility] [address] [place] [address] Patient: SUHA MOORE Visit ID: [id number] 26y, F Weight: 65.7 kg Height/Length: 68 in BMI: 22 ALLERGIES: No Known Drug Allergy Given 19:40 11/13/2016 Belia Huerta, Medication Administered: HALDOL [IM] (HALOPERIDOL LACTATE), Dose: 5 mg IM. Medication Ordered: Haldol IM 5 mg (HIGH ALERT MEDICATION, NOW).
== END 2016-11-13 20:10 ==
LOC: ED SRH 18:22
DX: F10.129 Alcohol abuse with intoxication, unspecified (principal); Y90.8 Blood alcohol level of 240 mg/100 ml or more
CPT/HCPCS: 90004; 92010; 92760; 92761; 92762; 92763; 92764; 92765; 92766; 92767; 93070

== ENCOUNTER 2016-12-17 18:52 | Emergency (ER) | payer OTHER ==
--- NOTE | 2016-12-17 20:30 | DIAGNOSTIC IMAGING REPORT ---
PROCEDURE: CT HEAD WITHOUT CONTRAST INDICATION: TRAUMA/INJURY TECHNIQUE: Axial CT images were acquired through the head. Coronal and sagittal reformations were created. Thin slice axial CT images through the facial bones. Coronal and sagittal reformations. COMPARISON: None. FINDINGS: Head CT: No intracranial hemorrhage or extraaxial fluid collections. Ventricles are normal in size, shape and position. There is no mass, mass effect or midline shift. The sauceda-white matter differentiation is normal. There is no edema. The calvarium is intact. Facial bones CT: No facial bone fractures. Mild mucosal thickening throughout the ethmoid air cells. Congenital leftward septal deviation and spurring. The paranasal sinuses and mastoid air cells are normally aerated. Minor soft tissue swelling over the left infraorbital cheek. The extracranial soft tissues and orbits are otherwise normal. IMPRESSION: 1. No CT evidence of acute intracranial process. 2. Minor soft tissue swelling over the left cheek without underlying fracture. 3. Findings discussed with Dr. Ohara at [address] scans at this facility use dose modulation, iterative reconstruction, and/or weight-based dosing when appropriate to reduce radiation dose to as low as reasonably achievable.
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
--- NOTE | 2016-12-17 20:32 | ED ORDER SUMMARY ---
..... Patient: SUHA MOORE OrderSheet [facility] VisitID: [id number] [place] [address] 26y, F Registration Date/Time: 12/17/2016 ORDER SHEET Weight: 63.5 kg (stated) Allergies: No Known Drug Allergy GENERAL ORDERS: CT Head wo Cont Urgent (19:02 12/17/2016 PHutchinson DO) (Ack 19:05 KHoerner) (19:55 AMcQuoid ER Tech1) CT Sinus/Facial Bones wo Cont Urgent (19:02 12/17/2016 PHutchinson DO) (Ack 19:05 KHoerner) (19:55 AMcQuoid ER Tech1) Urine Drug Screen Urgent (19:03 12/17/2016 PHson DO) (Ack 19:05 KHoerner) (19:38 EHassan R.N.) UA-Culture if indicated Urgent (19:03 12/17/2016 PHutchinson DO) (Ack 19:05 KHoerner) (19:38 EHassan R.N.) Urine Urgent (19:03 12/17/2016 PHutchinson DO) (Ack 19:05 KHoerner) (19:38 EHassan R.N.) Breathalyzer (19:03 12/17/2016 PHutchinson DO) (19:41 EHassan R.N.) POC Glucose (19:05 12/17/2016 chinson DO) (19:41 EHassan R.N.) MEDICATION ORDERS: Acetaminophen PO 1,000 mg (NOW) (19:56 12/17/2016 PHutchinson DO) (20:11 TLewis R.N.) Ibuprofen PO 600 mg (NOW) (19:56 12/17/2016 PHutchinson DO) (20:11 TLewis R.N.) Zofran ODT PO 4 mg (NOW) (19:56 12/17/2016 PHutchinson DO) (20:11 TLewis R.N.) IV FLUIDS: ORDER SHEET NOTES: [Electronically signed by Tu Grayson R.N. (21:04 12/17/2016)] [Electronically signed by Chavez Ohara DO (12:25 12/18/2016)] [Electronically locked/signed by Tu Grayson R.N. (21:04 12/17/2016)]
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
--- NOTE | 2016-12-17 20:32 | ED ORDER SUMMARY ---
..... Patient: SUHA MOORE OrderSheet [facility] VisitID: [id number] [place] [address] 26y, F Registration Date/Time: 12/17/2016 ORDER SHEET Weight: 63.5 kg (stated) Allergies: No Known Drug Allergy GENERAL ORDERS: CT Head wo Cont Urgent (19:02 12/17/2016 PHutchinson DO) (Ack 19:05 KHoerner) (19:55 AMcQuoid ER Tech1) CT Sinus/Facial Bones wo Cont Urgent (19:02 12/17/2016 PHutchinson DO) (Ack 19:05 KHoerner) (19:55 AMcQuoid ER Tech1) Urine Drug Screen Urgent (19:03 12/17/2016 PHson DO) (Ack 19:05 KHoerner) (19:38 EHassan R.N.) UA-Culture if indicated Urgent (19:03 12/17/2016 PHutchinson DO) (Ack 19:05 KHoerner) (19:38 EHassan R.N.) Urine Urgent (19:03 12/17/2016 PHutchinson DO) (Ack 19:05 KHoerner) (19:38 EHassan R.N.) Breathalyzer (19:03 12/17/2016 PHutchinson DO) (19:41 EHassan R.N.) POC Glucose (19:05 12/17/2016 chinson DO) (19:41 EHassan R.N.) MEDICATION ORDERS: Acetaminophen PO 1,000 mg (NOW) (19:56 12/17/2016 PHutchinson DO) (20:11 TLewis R.N.) Ibuprofen PO 600 mg (NOW) (19:56 12/17/2016 PHutchinson DO) (20:11 TLewis R.N.) Zofran ODT PO 4 mg (NOW) (19:56 12/17/2016 PHutchinson DO) (20:11 TLewis R.N.) IV FLUIDS: ORDER SHEET NOTES: [Electronically signed by Tu Grayson R.N. (21:04 12/17/2016)] [Electronically signed by Chavez Ohara DO (12:25 12/18/2016)] [Electronically locked/signed by Tu Grayson R.N. (21:04 12/17/2016)]
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
--- NOTE | 2016-12-18 12:25 | ED MED RECONCILIATION SUMMARY ---
Patient: SUHA MOORE Medication Reconciliation Report [facility] VisitID: [id number] [address] [place] [address] 26y, F Registration Date/Time: 12/17/2016 Weight: 63.5 kg Height/Length: 108 in. BMI: 8.4 ALLERGIES: No Known Drug Allergy The patient's Home Medications are listed below: NONE. The source(s) of the original Home Medication information: patient The following Medications were given to the patient in the Emergency Department: Zofran ODT [PO] PO 4 mg, administered: 12/17/2016 8:11:00 PM Acetaminophen [PO] PO 1000 mg, administered: 12/17/2016 8:11:00 PM Ibuprofen [PO] PO 600 mg, administered: 12/17/2016 8:11:00 PM The following Medications were prescribed to the patient: Acetaminophen (available over the counter): take according to label instructions. -- Chavez Ohara DO Motrin (available over the counter): take according to label instructions. -- Chavez Ohara DO
--- NOTE | 2016-12-18 12:25 | ED MAR SUMMARY ---
..... Medication Administration Record [facility] [address] [place] [address] Patient: SUHA MOORE Visit ID: [id number] 26y, F Weight: 63.5 kg Height/Length: 108 in BMI: 8.4 ALLERGIES: No Known Drug Allergy Given 20:12/17/2016 Tu Grayson R.N. Medication Administered: ACETAMINOPHEN [PO] (APAP), Dose: 1000 mg PO. Medication Ordered: Acetaminophen PO 1,000 mg (NOW). Given 20:12/17/2016 Tu Grayson R.N. Medication Administered: IBUPROFEN [PO], Dose: 600 mg PO. Medication Ordered: Ibuprofen PO 600 mg (NOW). Given 20:12/17/2016 Tu Grayson R.N. Medication Administered: ZOFRAN ODT [PO] (ONDANSETRON), Dose: 4 mg PO. Medication Ordered: Zofran ODT PO 4 mg (NOW).
--- NOTE | 2016-12-18 12:25 | ED MAR SUMMARY ---
..... Medication Administration Record [facility] [address] [place] [address] Patient: SUHA MOORE Visit ID: [id number] 26y, F Weight: 63.5 kg Height/Length: 108 in BMI: 8.4 ALLERGIES: No Known Drug Allergy Given 20:12/17/2016 Tu Grayson R.N. Medication Administered: ACETAMINOPHEN [PO] (APAP), Dose: 1000 mg PO. Medication Ordered: Acetaminophen PO 1,000 mg (NOW). Given 20:12/17/2016 Tu Grayson R.N. Medication Administered: IBUPROFEN [PO], Dose: 600 mg PO. Medication Ordered: Ibuprofen PO 600 mg (NOW). Given 20:12/17/2016 Tu Grayson R.N. Medication Administered: ZOFRAN ODT [PO] (ONDANSETRON), Dose: 4 mg PO. Medication Ordered: Zofran ODT PO 4 mg (NOW).
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
--- NOTE | 2016-12-18 12:25 | ED MED RECONCILIATION SUMMARY ---
Patient: SUHA MOORE Medication Reconciliation Report [facility] VisitID: [id number] [address] [place] [address] 26y, F Registration Date/Time: 12/17/2016 Weight: 63.5 kg Height/Length: 108 in. BMI: 8.4 ALLERGIES: No Known Drug Allergy The patient's Home Medications are listed below: NONE. The source(s) of the original Home Medication information: patient The following Medications were given to the patient in the Emergency Department: Zofran ODT [PO] PO 4 mg, administered: 12/17/2016 8:11:00 PM Acetaminophen [PO] PO 1000 mg, administered: 12/17/2016 8:11:00 PM Ibuprofen [PO] PO 600 mg, administered: 12/17/2016 8:11:00 PM The following Medications were prescribed to the patient: Acetaminophen (available over the counter): take according to label instructions. -- Chavez Ohara DO Motrin (available over the counter): take according to label instructions. -- Chavez Ohara DO
== END 2016-12-17 21:01 | disposition home or self-care (01) ==
LOC: ED SRH 18:52
DX: S00.83XA Contusion of other part of head, initial encounter (principal); S00.531A Contusion of lip, initial encounter; Y04.0XXA Assault by unarmed brawl or fight, initial encounter; Y93.9 Activity, unspecified; Y92.480 Sidewalk as the place of occurrence of the external cause; Y99.8 Other external cause status; F10.10 Alcohol abuse, uncomplicated; F12.122 Cannabis abuse with intoxication with perceptual disturbance; F17.210 Nicotine dependence, cigarettes, uncomplicated; Y90.0 Blood alcohol level of less than 20 mg/100 ml
CPT/HCPCS: 90004; 90098; 92760; 92761; 92762; 92763; 92764; 92765; 92766; 92767; 93070